=== PATIENT | female | born 1975 | race Caucasian/White ===

== ENCOUNTER → 2016-11-29 | Outpatient (CLI) | payer BC ==
--- NOTE | 2016-11-29 11:46 | KCIC ---
2 view chest dated 11/29/2016. No comparison available. Clinical indication: Possible lung nodule. FINDINGS: PA and lateral views obtained. Heart and mediastinal contours within normal limits. Lungs are clear without focal consolidation. Vascular interstitium within normal limits. No pleural effusion or pneumothorax. IMPRESSION: No acute radiographic abnormality. Electronically signed by: Jaquan Dyer MD (11/29/2016 11:43 AM)
== END | disposition home or self-care (01) ==
LOC: KCIC 10:16
PROVIDERS: ATTEND Chiropractor
DX: R91.1 Solitary pulmonary nodule (principal)
CPT/HCPCS: 71020

== ENCOUNTER 2018-02-28 15:37 | Emergency (ER) | payer BC ==
[~2018-02-28] VITALS: Ht 157.5 cm; Wt 79.4 kg
[2018-02-28] MEDS ORDERED: IOHEXOL 300 MG/ML 100ML VIAL. PO ONE (16:15)
[2018-02-28 16:16] LABS: BASO # 0.1 x10^3/uL (0.0-0.2); BASO % 1 % (0-3); EOS # 0.2 x10^3/uL (0.0-0.7); EOS % 2 % (0-3); HEMATOCRIT 44.5 % (36.0-47.0); HEMOGLOBIN 15.8 g/dL (12.0-15.5); LYMPH # 1.9 x10^3/uL (1.0-4.8); LYMPH % 27 % (24-48); MEAN CORPUSCULAR HEMOGLOBIN 31 pg (25-35); MEAN CORPUSCULAR HGB CONC 36 g/dL (31-37); MEAN CORPUSCULAR VOLUME 87 fL (79-100); MONO # 0.4 x10^3/uL (0.0-1.1); MONO % 5 % (0-9); NEUT # 4.8 x10^3uL (1.8-7.7); NEUT % 65 % (31-73); PLATELET COUNT 296 x10^3/uL (140-400); RED BLOOD COUNT 5.11 x10^6/uL (3.50-5.40); RED CELL DISTRIBUTION WIDTH 13.2 % (11.5-14.5); WHITE BLOOD COUNT 7.3 x10^3/uL (4.0-11.0)
--- NOTE | 2018-02-28 16:16 | EKG ---
[facility] [address] [place] [address] Test Date: 2018-02-28 Test Time: 15:47:28 Pat Name: FAITH BAÑUELOS Department: Room: Gender: F Design Intern: : 1975 Requested By: KATIA CORRALES Order Number: [id number] Reading MD: Salazar Chris MD Measurements Intervals [place] Rate: 79 P: 17 PA: 128 QRS: 33 QRSD: 88 T: 19 QT: 348 QTc: 404 Interpretive Statements SINUS RHYTHM Electronically Signed On 03-01-2018 7:53:16 CDT by Salazar Chris MD
[2018-02-28 16:29] LABS: PROTHROMBIN TIME PATIENT 11.7 SEC (11.7-14.0)
[2018-02-28 16:41] LABS: CALCIUM 9.2 mg/dL (8.5-10.1); CREATININE 0.8 mg/dL (0.6-1.0); GFR 78.7; POTASSIUM 3.3 mmol/L (3.5-5.1)
[2018-02-28 16:46] LABS: ALBUMIN 4.6 g/dL (3.4-5.0); ALBUMIN/GLOBULIN RATIO 1.4 (1.0-1.7); MAGNESIUM 2.1 mg/dL (1.8-2.4); TOTAL BILIRUBIN 0.5 mg/dL (0.2-1.0); TOTAL PROTEIN 7.8 g/dL (6.4-8.2)
[2018-02-28] MEDS ORDERED: CONTRAST GIVEN. MC PRN (17:00)
--- NOTE | 2018-02-28 17:13 | RAD ---
PQRS Compliance statement: One or more of the following individualized dose reduction techniques were utilized for this examination: 1. Automated exposure control. 2. Adjustment of the mA and/or kV according to patient size. 3. Use of iterative reconstruction technique. Indication:LEFT SIDE CHEST PAIN, SHORTNESS OF BREATH. TECHNIQUE: CT angiogram of the chest with IV contrast with multiplanar MIP reformats. COMPARISON:None FINDINGS: Slightly suboptimal PE study due to contrast bolus timing. However there are no central, segmental or subsegmental filling defects in the pulmonary arteries. Heart is normal in size. No pericardial or pleural effusion. Clear neck base. No axillary, mediastinal or hilar adenopathy. Visualized sections through the liver, spleen, kidneys, pancreas and adrenals within normal limits. No suspicious bony lesion. IMPRESSION: 1. No PE. No pneumonia. Electronically signed by: Guero Dos Santos DO (02/28/2018 5:10 PM) [facility]
--- NOTE | 2018-02-28 17:19 | PHYS DOC ---
Past Medical History Past Medical History: Other Additional Past Medical Histor: Insulin Resistant DM Past Surgical History: Cholecystectomy, , Tubal ligation Additional Information: Nonsmoking Alcohol Use: Rarely Drug Use: None Adult General Chief Complaint Chief Complaint: CHEST PAIN [facility] HPI Patient is a 43 year old female who presents with complaining of chest pain. Patient complaining of intermittent episodes of left side chest pain for the last 5 days that usually happen with activity and resolves with rest. Patient said the pain is sharp and radiated to her back and associated with shortness of breath and palpitation and rated her pain 6/10. Patient denies cough and congestion, fever and chills, nausea, vomiting and diarrhea. Patient states she had occasional episodes of chest pain that usually lasts for a very short time but this time her pain continue for the last 5 days and was seen by her primary care physician today and sent her to ER because of heating new heart murmur and having abnormal EKG. Patient denies smoking cigarettes and having history of previous heart problem. Patient had history of diabetes mellitus and denies hypertension and dyslipidemia and history of coronary artery disease. Review of Systems Review of Systems Constitutional: Denies fever or chills [] Eyes: Denies change in visual acuity, redness, or eye pain [] HENT: Denies nasal congestion or sore throat [] Respiratory: Denies cough or shortness of breath [] Cardiovascular: No additional information not addressed in HPI [] GI: Denies abdominal pain, nausea, vomiting, bloody stools or diarrhea [] : Denies dysuria or hematuria [] Musculoskeletal: Denies back pain or joint pain [] Integument: Denies rash or skin lesions [] Neurologic: Denies headache, focal weakness or sensory changes [] Endocrine: Denies polyuria or polydipsia [] All other systems were reviewed and found to be within normal limits, except as documented in this note. Current Medications Current Medications Current Medications Medications (Trade) Dose Ordered Sig/Krish Start Time Stop Time Status Last Admin Dose Admin Info (CONTRAST GIVEN -- Rx MONITORING) 1 each PRN DAILY PRN 02/28/18 17:00 03/02/18 16:59 Iohexol (Omnipaque 300 Mg/ml) 75 ml 1X ONCE 02/28/18 16:15 02/28/18 16:50 DC 02/28/18 16:15 75 ML Allergies Allergies Allergies Coded Allergies Type Severity Reaction Last Updated Verified Penicillins Allergy Intermediate 02/28/18 Yes Physical Exam Physical Exam Constitutional: Well developed, well nourished, mild distress, non-toxic appearance. [] HENT: Normocephalic, atraumatic, oropharynx moist, no oral exudates, nose normal. [] Eyes: PERRLA, EOMI, conjunctiva normal, no discharge. [] Neck: Normal range of motion, no tenderness, supple, no stridor. [] Cardiovascular:Heart rate regular rhythm, no murmur [] Lungs & Thorax: Bilateral breath sounds clear to auscultation [] Abdomen: Bowel sounds normal, soft, no tenderness, no masses, no pulsatile masses. [] Skin: Warm, dry, no erythema, no rash. [] Back: No tenderness, no CVA tenderness. [] Extremities: No tenderness, no cyanosis, no clubbing, ROM intact, no edema. [] Neurologic: Alert and oriented X 3, normal motor function, normal sensory function, no focal deficits noted. [] Psychologic: Affect normal, judgement normal, mood normal. [] Current Patient Data Vital Signs Vital Signs Date Time Temp Pulse Resp B/P (MAP) Pulse Ox O2 Delivery O2 Flow Rate FiO2 02/28/18 15:55 98.8 82 18 167/90 (115) 98 Room Air 98.8 Lab Values Laboratory Tests Test 02/28/18 15:50 White Blood Count 7.3 x10^3/uL (4.0-11.0) Red Blood Count 5.11 x10^6/uL (3.50-5.40) Hemoglobin 15.8 g/dL (12.0-15.5) H Hematocrit 44.5 % (36.0-47.0) Mean Corpuscular Volume 87 fL (79-100) Mean Corpuscular Hemoglobin 31 pg (25-35) Mean Corpuscular Hemoglobin Concent 36 g/dL (31-37) Red Cell Distribution Width 13.2 % (11.5-14.5) Platelet Count 296 x10^3/uL (140-400) Neutrophils (%) (Auto) 65 % (31-73) Lymphocytes (%) (Auto) 27 % (24-48) Monocytes (%) (Auto) 5 % (0-9) Eosinophils (%) (Auto) 2 % (0-3) Basophils (%) (Auto) 1 % (0-3) Neutrophils # (Auto) 4.8 x10^3uL (1.8-7.7) Lymphocytes # (Auto) 1.9 x10^3/uL (1.0-4.8) Monocytes # (Auto) 0.4 x10^3/uL (0.0-1.1) Eosinophils # (Auto) 0.2 x10^3/uL (0.0-0.7) Basophils # (Auto) 0.1 x10^3/uL (0.0-0.2) Prothrombin Time 11.7 SEC (11.7-14.0) Prothrombin Time INR 0.9 (0.8-1.1) Sodium Level 140 mmol/L (136-145) Potassium Level 3.3 mmol/L (3.5-5.1) L Chloride Level 102 mmol/L (98-107) Carbon Dioxide Level 29 mmol/L (21-32) Anion Gap 9 (6-14) Blood Urea Nitrogen 12 mg/dL (7-20) Creatinine 0.8 mg/dL (0.6-1.0) Estimated GFR (Cockcroft-Gault) 78.7 BUN/Creatinine Ratio 15 (6-20) Glucose Level 146 mg/dL (70-99) H Calcium Level 9.2 mg/dL (8.5-10.1) Magnesium Level 2.1 mg/dL (1.8-2.4) Total Bilirubin 0.5 mg/dL (0.2-1.0) Aspartate Amino Transferase (AST) 31 U/L (15-37) Alanine Aminotransferase (ALT) 48 U/L (14-59) Alkaline Phosphatase 62 U/L (46-116) Creatine Kinase 177 U/L (26-192) Creatine Kinase MB (Mass) 1.8 ng/mL (0.0-3.6) Creatine Kinase MB Relative Index 1.0 % (0-4) Troponin I Quantitative < 0.017 ng/mL (0.000-0.055) OZ-Qzg-N-Type Natriuretic Peptide 15 pg/mL (0-124) Total Protein 7.8 g/dL (6.4-8.2) Albumin 4.6 g/dL (3.4-5.0) Albumin/Globulin Ratio 1.4 (1.0-1.7) Lipase 158 U/L (73-393) Laboratory Tests 02/28/18 15:50 Laboratory Tests 02/28/18 15:50 EKG EKG EKG interpreted by me. EKG at 1547 showed normal sinus rhythm at rate of 79, no acute ST and T wave abnormality abnormal EKG.[] Radiology/Procedures Radiology/Procedures [][facility] [address] [place] [address] IMAGING REPORT Signed PATIENT: FAITH BAÑUELOS ACCOUNT: [id number] : 1975 LOCATION: ER AGE: 43 SEX: F EXAM STATUS: REG ER ORD. PHYSICIAN: KATIA CORRALES MD REASON: chest pain and new heart murmur PROCEDURE: CT ANGIOGRAPHY CHEST PQRS Compliance statement: One or more of the following individualized dose reduction techniques were utilized for this examination: 1. Automated exposure control. 2. Adjustment of the mA and/or kV according to patient size. 3. Use of iterative reconstruction technique. Indication:LEFT SIDE CHEST PAIN, SHORTNESS OF BREATH. TECHNIQUE: CT angiogram of the chest with IV contrast with multiplanar MIP reformats. COMPARISON:None FINDINGS: Slightly suboptimal PE study due to contrast bolus timing. However there are no central, segmental or subsegmental filling defects in the pulmonary arteries. Heart is normal in size. No pericardial or pleural effusion. Clear neck base. No axillary, mediastinal or hilar adenopathy. Visualized sections through the liver, spleen, kidneys, pancreas and adrenals within normal limits. No suspicious bony lesion. IMPRESSION: 1. No PE. No pneumonia. Electronically signed by: Guero Lockett DO (02/28/2018 5:10 PM) [facility] DICTATED and SIGNED BY: GUERO LOCKETT DO DATE: 02/28/181705 Course & Med Decision Making Course & Med Decision Making Pertinent Labs and Imaging studies reviewed. (See chart for details) Evaluation of patient in ER showed 43-year-old female patient with complaining of intermittent episodes of left-sided chest pain with exertion for the last 5 days. Patient had unremarkable physical exam, EKG, labs except for mild hypokalemia at 3.3. Patient did not want to have pain medication in ER. CT of chest was unremarkable for PE . For about test results needs to follow up with her primary care physician as outpatient for possible stress test for exertional chest pain. She did not want to have prescription for pain medication. Dragon Disclaimer Dragon Disclaimer This electronic medical record was generated, in whole or in part, using a voice recognition dictation system. Departure Departure Impression: Primary Impression: Chest pain Additional Impressions: Hypokalemia History of diabetes mellitus Disposition: HOME, SELF-CARE (@5340) Condition: STABLE Referrals: NO PCP (PCP) Patient Instructions: Chest Pain (Nonspecific), Hypokalemia Additional Instructions: Drink plenty of liquids Follow-up with your primary care physician in 2-3 days for more heart evaluation Return to ER if not getting better Problem Qualifiers KATIA CORRALES MD Feb 28, 2018 17:19
[2018-02-28 17:32] VITALS: BP 131/78
== END 2018-02-28 17:48 | disposition home or self-care (01) ==
LOC: ER 15:37
DX: R07.89 Other chest pain (principal); E87.6 Hypokalemia; E11.9 Type 2 diabetes mellitus without complications; R06.02 Shortness of breath; R00.2 Palpitations; Z88.0 Allergy status to penicillin
CPT/HCPCS: 36415; 71275; 80053; 82553; 83690; 83735; 83880; 84484; 85025; 85610; 93005; 99285; Q9967

== ENCOUNTER → 2020-02-18 | Outpatient (CLI) | payer BC ==
--- NOTE | 2020-02-18 14:20 | RAD ---
PA and lateral chest x-ray without comparison for chest pain. FINDINGS: There is no pneumothorax or pleural effusion. No mass. No focal infiltrate. Cardiomediastinum is grossly unremarkable. No soft tissue or osseous abnormalities. IMPRESSION: 1. Normal chest x-ray. Electronically signed by: Mor Mattson MD (02/18/2020 2:18 PM) [id number]
== END | disposition home or self-care (01) ==
LOC: RAD 13:55
PROVIDERS: ATTEND Family Medicine
DX: R07.89 Other chest pain (principal)
CPT/HCPCS: 71046

== ENCOUNTER → 2020-08-09 | Outpatient (CLI) | payer BC ==
[~2020-08-09] MED LIST: IOHEXOL 300 MG/ML 100ML VIAL. IV ONE; METF500T16 PO
--- NOTE | 2020-08-10 08:10 | KCIC ---
PQRS Compliance Statement: One or more of the following individualized dose reduction techniques were utilized for this examinat ion: 1. Automated exposure control 2. Adjustment of the mA and/or kV according to patient size 3. Use of iterative reconstruction technique CT THORAX W Clinical Indication: Reason: Intermittent chest pain a few months, sternal pain, pain under Rt breast Comparison: CT chest with contrast, February 28, 2018. Technique: Helical CT imaging of the chest is performed after 95 cc of Omnipaque 300 IV contrast. Findings: The thyroid is symmetric. There is no adenopathy in the chest. The great vessels are normal caliber. Cardiac size is normal, no pericardial effusion. There is no pleural abnormality. The central airways are patent. The lungs are clear. There is moderate fatty infiltration of the liver. Liver is incompletely imaged. Thoracic spine alignment is maintained. No acute bone abnormality. IMPRESSION: 1. No acute cardiopulmonary process. 2. Fatty infiltration of the liver. Electronically signed by: Jose Antonio Delcid MD (08/10/2020 8:08 AM) [id number]
== END ==
LOC: KCIC CT 08:32
PROVIDERS: ATTEND Family Medicine
DX: K76.0 Fatty (change of) liver, not elsewhere classified (principal); R07.9 Chest pain, unspecified
CPT/HCPCS: 71260; 82565; Q9967

== ENCOUNTER → 2020-09-06 | Outpatient (CLI) | payer BC ==
[~2020-09-06] MED LIST changes: -IOHEXOL 300 MG/ML 100ML VIAL. IV ONE
--- NOTE | 2020-09-06 13:45 | RAD ---
MR#: [id number] Date of Study: 09/06/2020 Ordering Physician: HAMIDA WIGGINS, Referring Physician: JAVAN DUBON Tech: RT Leilani (R) (N) APPROVED REPORT Test Type: Exercise Stress Nurse/Tech: Pati Last RN Test Indications: Tachycardia, chest pain Cardiac History: x-smoker, DM Medications: See Electronic Medical Record Medical History: See Electronic Medical Record Resting ECG: SR Resting Heart Rate: 128/73 bpm Resting Blood Pressure: 128/73mmHg Pretest Chest Pain: None Nurse/Tech Notes Lungs CTA, S1S2 Consent: The procedure was explained to the patient in lay terms. Informed consent was witnessed. Jonathan eout was entered into [employer]. History and Stress Test performed by BU[facility] Gallegos Stress Symptoms No chest pain or symptoms. POST EXERCISE Reason for Termination: Reached target heart rate Target HR: 149 Max HR: 161 bpm 108% of Maximum Predicted HR: bpm Exercise duration: 5:10 min:sec, 2 Stage Max Blood Pressure: 128/73mmHg Blood Pressure response to exercise: Normal blood pressure response during stress. Heart Rate response to exercise: normal response Chest Pain: No. Arrhythmia: No. ST Change: No. INTERPRETATION Stress EKG Conclusion: Baseline EKG showed sinus rhythm. No ischemic changes at peak stress. No arr hythmias. Imaging Protocol IMAGE PROTOCOL: Rest Tc-99m/stress Tc-99m 1 day Rest: Stress: Viability: Radiopharm.Tc99m PqholsiegUb13m Sestamibi Iwec10nNm 33mCi Duration 13min. 13min. Img Date 09/06/2020 09/06/2020 Inj-Img Mmpw28gii. 60min. Rest Admin Site:IV - Right AntecubitalAdministrator:RT Leilani (R)(N) Stress Admin Site: IV - Right AntecubitalAdministrator: RT Leilani (R)(N) STRESS DATA End Diast. Vol.52.0mlLVEDV index BSA28.0ml End Syst. Vol.8.0mlLVESV index BSA4.0ml Myocardial Mass92.0gEject. Gpmlaswt50.0% Stress Scores Regional WT0.00Summed WT0.00 Regional WM0.00Summed WM0.00 LV Perfusion Scintigraphic images showed fixed anterior wall defect most probably breast attenuation artifact base d on normal wall motion. Wall Motion Normal left ventricle systolic function with ejection fraction calculated at 75%. LV Perf. Quant 17 Seg. SSS1.00 17 Seg. SRS0.00 17 Seg. SDS1.00 Stress Defect Extent (% LAD)0.00Rest Defect Extent (% LAD)0.00Rev. Defect Extent (% LAD)0.00 Stress Defect Extent (% LCX) 0.00Rest Defect Extent (% LCX)0.00Rev. Defect Extent (% LCX)0.00 Stress Defect Extent (% RCA)0.00Rest Defect Extent (% RCA)0.00Rev. Defect Extent (% RCA)0.00 Stress Defect Extent (% JOSE)0.00Rest Defect Extent (% JOSE)0.00Rev. Defect Extent (% JOSE)0.00 Conclusion 1. Treadmill exercise cardioisotope stress test showed breast attenuation artifact without any eviden ce of ischemia or infarct. 2. Normal left ventricular systolic function with ejection fraction calculated at 75%. 3. Low risk for cardiac events. Signed by : Molina Hernández, Electronically Approved : 09/06/2020 13:44:46
== END ==
LOC: NM 09:01
PROVIDERS: ATTEND Internal Medicine Cardiovascular Disease
DX: R07.89 Other chest pain (principal); Z87.891 Personal history of nicotine dependence
CPT/HCPCS: 78452; 93017; A9500